=== PATIENT | female | born 1985 | race Asian ===

== ENCOUNTER 2023-11-14 10:59 | Emergency (ER) | payer MEDICAID ==
[~2023-11-14] VITALS: Ht 162.6 cm; Wt 77.3 kg
[2023-11-14 11:10] VITALS: TEMP 98.2
[2023-11-14] MEDS ORDERED: CefTRIAXone SODIUM 1 GM/VIAL IM ONE (12:15)
[2023-11-14] MEDS ORDERED: LIDOCAINE/PF 1% 2 ML VIAL IM ONE (12:15)
[2023-11-14] MEDS ORDERED: AZITHROMYCIN 500 MG TABLET PO ONE (12:15)
[2023-11-14 12:38] VITALS: BP 126/78; PULSE 75; RESP 16
== END 2023-11-14 12:49 | disposition home or self-care (01) ==
LOC: EMS 10:59
DX: N34.2 Other urethritis (principal); Z98.890 Other specified postprocedural states; Z88.6 Allergy status to analgesic agent; Z88.8 Allergy status to other drugs, medicaments and biological substances
CPT/HCPCS: 99283; 87491; 87591; 96372; J0696; J3490; Q9967